=== PATIENT | female | born 1995 | race Caucasian/White ===

== ENCOUNTER 2022-05-17 12:30 | Inpatient (IN) | payer OTHER ==
[2022-05-17 14:06] VITALS: BMI 30.4
[2022-05-17] MEDS ORDERED: OXYTOCIN 30 UNITS in 0.9% NS 30 UNIT/500 ML INFUS.BAG IVPB ONE (14:34)
[2022-05-17] MEDS ORDERED: PROMETHAZINE HCL 25 MG/1 ML VIAL IVPUSH ONE (14:39)
[2022-05-17] MEDS ORDERED: BUTORPHANOL TARTRATE 1 MG/ML VIAL IVPB ONE (14:39)
[2022-05-17] MEDS ORDERED: OXYTOCIN 30 UNITS in 0.9% NS 30 UNIT/500 ML INFUS.BAG IVPB SCH (14:45)
[2022-05-17] MEDS ORDERED: ELECTROLYTE-148 SOLN 1,000 ML IV SCH (14:45)
[2022-05-17 15:20] LABS: BASO % 0.2 % (0-2.0); EOS % 0.4 % (0-4.5); HEMATOCRIT 36.1 % (32.4-45.2); HEMOGLOBIN 12.4 GM/dL (10.7-15.3); LYMPH % 11.9 % (8-40); MCH 30.8 pg (25.7-33.7); MCHC 34.3 g/dl (32.0-36.0); MEAN CELL VOLUME 89.7 fl (80-96); MEAN PLT VOLUME 10.7 fl (7.5-11.1); MONO % 6.5 % (3.8-10.2); PLATELET COUNT 125 10^3/uL (134-434); RBC 4.02 M/mm3 (3.60-5.2); RDW 13.5 % (11.6-15.6)
[2022-05-17 15:32] LABS: INR 0.97 (0.83-1.09); PROTHROMBIN TIME (PATIENT) 11.2 SEC (9.7-13.0)
[2022-05-17 15:35] LABS: ACTIVATED PTT 26.8 SECONDS (25.2-36.5)
[2022-05-17 15:46] LABS: BLOOD UREA NITROGEN 7.2 mg/dL (7-18); CALCIUM 9.1 mg/dL (8.5-10.1)
[2022-05-17 15:49] LABS: CREATININE 0.5 mg/dL (0.55-1.3)
[2022-05-17 16:40] LABS: HIV INTERPRETATION NEGATIVE (NEGATIVE)
[2022-05-17] MEDS ORDERED: PROMETHAZINE HCL 25 MG/1 ML VIAL ONE (17:33)
[2022-05-17] MEDS ORDERED: BUTORPHANOL TARTRATE 2 MG/ML VIAL ONE (17:33)
[2022-05-17] MEDS: OXYTOCIN 20 UNITS in 0.9% NS 20 UNIT/1,000 ML INFUS.BAG IV SCH ×2 (21:10→23:44)
[2022-05-17] MEDS ORDERED: ACETAMINOPHEN 1000 MG/100 ML BAG IVPB ONE (22:01)
[2022-05-17] MEDS ORDERED: ACETAMINOPHEN 325 MG TABLET (FP) PO PRN (22:05)
[2022-05-17] MEDS ORDERED: CITRIC ACID/SODIUM CITRATE 30 ML UNIT-DOSE CUP PO ONE (22:05)
[2022-05-17] MEDS ORDERED: IBUPROFEN 800 MG/8 ML IJ IVPB PRN (22:05)
[2022-05-17] MEDS ORDERED: METHYLERGONOVINE MALEATE 0.2 MG/1 ML AMP IM PRN (22:05)
[2022-05-17] MEDS ORDERED: ACETAMINOPHEN INJECTION 100 ML IVPB ONE (22:13)
[2022-05-17] MEDS ORDERED: OXYTOCIN 20 UNITS in 0.9% NS 20 UNIT/1,000 ML INFUS.BAG IV ONE (23:26)
[2022-05-18 09:08] LABS: BASO % 0.3 % (0-2.0); EOS % 0.3 % (0-4.5); HEMATOCRIT 34.4 % (32.4-45.2); HEMOGLOBIN 11.9 GM/dL (10.7-15.3); LYMPH % 10.6 % (8-40); MCH 30.9 pg (25.7-33.7); MCHC 34.6 g/dl (32.0-36.0); MEAN CELL VOLUME 89.4 fl (80-96); MEAN PLT VOLUME 11.2 fl (7.5-11.1); MONO % 5.9 % (3.8-10.2); NEUT % 82.9 % (42.8-82.8); PLATELET COUNT 110 10^3/uL (134-434); RBC 3.85 M/mm3 (3.60-5.2); RDW 13.3 % (11.6-15.6); WHITE BLOOD COUNT 9.2 K/mm3 (4.0-10.0)
[2022-05-18] MEDS: IBUPROFEN 600 MG TABLET (FP) PO PRN ×2 (09:30→16:35)
[2022-05-18] MEDS: PRENATAL VITAMINS W/ FOLIC ACID TABLET (FP) PO SCH (09:30)
[2022-05-18] MEDS: SIMETHICONE 80 MG TAB.CHEW (FP) PO PRN ×2 (09:31→21:17)
[2022-05-18] MEDS: oxyCODONE HCL 5 MG TABLET PO PRN ×2 (13:54→21:17)
[2022-05-18] MEDS: SENNOSIDES/DOCUSATE COMBO (SENNA PLUS) TABLET (UD) PO PRN (21:17)
[2022-05-18] MEDS ORDERED: BISACODYL 10 MG SUPP.RECT RC PRN (22:06)
[2022-05-19] MEDS: IBUPROFEN 600 MG TABLET (FP) PO PRN ×2 (00:32→12:45)
[2022-05-19] MEDS: SIMETHICONE 80 MG TAB.CHEW (FP) PO PRN ×3 (08:46→22:15)
[2022-05-19] MEDS: oxyCODONE HCL 5 MG TABLET PO PRN ×3 (08:46→22:15)
[2022-05-19] MEDS: PRENATAL VITAMINS W/ FOLIC ACID TABLET (FP) PO SCH (10:47)
[2022-05-19] MEDS: SENNOSIDES/DOCUSATE COMBO (SENNA PLUS) TABLET (UD) PO PRN (22:17)
[2022-05-20] MEDS: oxyCODONE HCL 5 MG TABLET PO PRN (01:14)
[2022-05-20] MEDS: PRENATAL VITAMINS W/ FOLIC ACID TABLET (FP) PO SCH (09:18)
[2022-05-20] MEDS: IBUPROFEN 600 MG TABLET (FP) PO PRN (09:19)
[2022-05-20 11:30] VITALS: BP 133/74; PULSE 69; RESP 16; TEMP 98.3
== END 2022-05-20 13:50 | disposition home or self-care (01) | DRG 540 ==
LOC: JLDR 12:30 → J3W 05-18 00:04
PROVIDERS: ADMIT Obstetrics & Gynecology; ATTEND Obstetrics & Gynecology
PROC: 10D00Z1 Extraction of Products of Conception, Low, Open Approach (ICD-10-PCS; principal; 2022-05-17)
DX: O32.2XX0 Maternal care for transverse and oblique lie, not applicable or unspecified (principal); O62.9 Abnormality of forces of labor, unspecified; O36.63X0 Maternal care for excessive fetal growth, third trimester, not applicable or unspecified; Z3A.39 39 weeks gestation of pregnancy; Z37.0 Single live birth
CPT/HCPCS: 36415; 80048; 85025; 85610; 85730; 86780; 86850; 86900; 86901; 87389; 88307-TC; C9803-CS; U0003; U0005